=== PATIENT | female | born 1955 | race Caucasian/White ===

== ENCOUNTER 2016-07-18 16:15 | Emergency (ER) | payer OTHER ==
[2016-07-18 16:32] VITALS: TEMP 97.4; BMI 15.5
--- NOTE | 2016-07-18 16:35 | PDOC ---
History of Present Illness - General History Source: Patient Exam Limitations: No Limitations - History of Present Illness Initial Comments: 07/18/16 16:47 The patient is a 61 year old female, with significant past medical history of Crohns disease, volvulus (2006), appendectomy (2006), hypotension, right renal cyst, kidney stones, who presents today complaining of 1 syncopal episode this morning, lightheadedness, and abdominal pain. The patient states that she went into the bedroom to retrieve something when she became light headed and felt numbness and tingling in her fingers and toes bilaterally. Her found her on the bedroom floor.The patient insists that she did not hit her head. The patient had a second episode of lightheadedness as she was getting out of the car this afternoon.The patient reports 1 week of LLQ abdominal pain similar to the pain she felt when she had a volvulus. She describes the pain as a 5/10 in severity. She explains that she has had 5 episodes of diarrhea today, but states that this is not unusual for her considering her hx of Crohns. She believes that she has had recent unintentional weight loss, but does not know how many lbs since she does not use a scale at home. Denies fever, chills, nausea, vomiting. Denies chest pain, SOB, cough. Denies blood or mucous in the stool. Allergies: none reported Medications: Celexa, Omeprazole, Potassium Chloride Social Hx: Social alcohol use. No tobacco use. PCP- <Halina Lama - Last Filed: 07/18/16 18:05> <Eddie Dutton - Last Filed: 07/18/16 18:23> - General Chief Complaint: Syncope/Near Syncope Stated Complaint: FAINTED, HEADACHE , ABDOMINAL PAIN Time Seen by Provider: 07/18/16 16:35 Past History <Halina Lama - Last Filed: 07/18/16 18:05> - Past Medical History GI Disorders: Yes (CROHN'S, SBO X2) - Surgical History GI Surgery: Yes (VOLVULUS) - Psycho/Social/Smoking Cessation Hx Anxiety: Yes Suicidal Ideation: No Smoking History: Never smoked Drug/Substance Use Hx: No Substance Use Type: None <Eddie Dutton - Last Filed: 07/18/16 18:23> - Past Medical History Allergies/Adverse Reactions: Allergies Allergy/AdvReac Type Severity Reaction Status Date / Time No Known Allergies Allergy Verified 07/18/16 16:24 Home Medications: Ambulatory Orders Citalopram Hydrobromide [Celexa -] 10 mg PO DAILY 07/18/16 Omeprazole 20 mg PO DAILY 07/18/16 Potassium Chloride [K-Dur -] 20 meq PO DAILY 07/18/16 Review of Systems - Review of Systems Able to Perform ROS?: Yes Comments:: 07/18/16 16:47 CONSTITUTIONAL: Absent: fever, chills, diaphoresis, generalized weakness, malaise, loss of appetite HEENT: Absent: rhinorrhea, nasal congestion, throat pain, throat swelling, difficulty swallowing, mouth swelling, ear pain, eye pain, visual Changes CARDIOVASCULAR: Absent: chest pain, syncope, palpitations, irregular heart rate, peripheral edema RESPIRATORY: Absent: cough, shortness of breath, dyspnea with exertion, orthopnea, wheezing, stridor, hemoptysis GASTROINTESTINAL: Present: LLQ abdominal pain, diarrhea. Absent: abdominal distension, nausea, vomiting, constipation, melena, hematochezia GENITOURINARY: Absent: dysuria, frequency, urgency, hesitancy, hematuria, flank pain, genital pain MUSCULOSKELETAL: Absent: myalgia, arthralgia, joint swelling SKIN: Absent: rash, itching, pallor NEUROLOGIC: Present: headache, syncope with associated parathesias in the hands and feet bilaterally, lightheadedness. Absent: focal weakness or paresthesias, dizziness, unsteady gait, seizure, mental status changes, bladder or bowel incontinence PSYCHIATRIC: Absent: anxiety, depression, suicidal or homicidal ideation, hallucinations. <Halina Lama - Last Filed: 07/18/16 18:05> *Physical Exam - Vital Signs Last Vital Signs Temp Pulse Resp BP Pulse Ox 97.4 F L 64 15 96/54 100 07/18/16 16:35 07/18/16 16:37 07/18/16 16:35 07/18/16 16:37 07/18/16 16:35 - Physical Exam Comments: 07/18/16 16:48 GENERAL: Extremely thin and cachectic in appearance. Awake and alert. In no acute distress. HEENT: Normocephalic, atraumatic. PERRLA, EOMI. No conjunctival pallor. Sclera are non- icteric. Moist mucous membranes. Oropharynx is clear. NECK: Supple. Full ROM. No JVD. Carotid pulses 2+ and symmetric, without bruits. No thyromegaly. No lymphadenopathy. CARDIOVASCULAR: Regular rate and rhythm. No murmurs, rubs, or gallops. Distal pulses are 2+ and symmetric. PULMONARY: No evidence of respiratory distress. Lungs clear to auscultation bilaterally. No wheezing, rales or rhonchi. ABDOMINAL: Soft. Non-tender. Non-distended. No rebound or guarding. No organomegaly. Normoactive bowel sounds. MUSCULOSKELETAL Normal range of motion at all joints. No bony deformities or tenderness. No CVA tenderness. EXTREMITIES: No cyanosis. No clubbing. No edema. No calf tenderness. SKIN: Warm and dry. Normal capillary refill. No rashes. No jaundice. NEUROLOGICAL: Alert, awake, appropriate. Cranial nerves 2-12 intact. No deficits to light touch and temperature in face, upper extremities and lower extremities. No motor deficits in the in face, upper extremities and lower extremities. Normoreflexic in the upper and lower extremities. Normal speech. Toes are downgoing bilaterally. Gait is normal without ataxia. PSYCHIATRIC: Cooperative. Good eye contact. Appropriate mood and affect. <Halina Lama - Last Filed: 07/18/16 18:05> - Vital Signs Last Vital Signs Temp Pulse Resp BP Pulse Ox 97.4 F L 73 15 96/61 100 07/18/16 16:24 07/18/16 16:24 07/18/16 16:24 07/18/16 16:24 07/18/16 16:24 <Eddie Dutton - Last Filed: 07/18/16 18:23> ED Treatment Course - LABORATORY CBC & Chemistry Diagram: 07/18/16 16:50 07/18/16 16:50 - RADIOLOGY Radiograph Interpretation: 07/18/16 18:05 EXAM: CT HEAD WITHOUT CONTRAST DATE OF SERVICE: 2016-07-18 17:29:16.0 IMAGES: 69 REASON FOR EXAM: Headaches. Syncope. COMPARISON: None. IMPRESSION: No CT evidence of acute infarct, hemorrhage, hydrocephalus or mass effect. Mild age-related involutional changes with ex vacuo dilatation of the ventricular system and expansion of the sulci. THIS DOCUMENT HAS BEEN ELECTRONICALLY SIGNED Becky Brown MD. 07/18/2016 17: 54 NICHOLE Kendall <Halina Lama - Last Filed: 07/18/16 18:05> - LABORATORY CBC & Chemistry Diagram: 07/18/16 16:50 07/18/16 16:50 <Eddie Dutton - Last Filed: 07/18/16 18:23> Medical Decision Making - Medical Decision Making 07/18/16 16:40 Patient was in her bedroom this morning and describes "blacking out". Her was downstairs and came to her assistance. She is insistent that she did not fall and did not hurt her head or neck. She was only "out" for less than a minute. There was no confusion or incontinence subsequently. She felt a little "lightheaded" again later in the day. She states she may have a mild headache and some mild abdominal pain, but this is characteristic of her Crohn' s disease. Her physical exam is unremarkable except that she is extremely thin and somewhat cachectic, but states that this is her normal body habitus. 07/18/16 17:09 Additional history reveals that the patient also experienced numbness and tingling in her fingertips and toes bilaterally at the time. She appears anxious , noting that her mother recently had heart surgery for atrial fibrillation and still wears a monitor at all times. EKG revealed normal sinus rhythm 67/m. Rightward axis. Incomplete RBBB. Slightly prolonged QT. No ST-T wave abnormalities that might suggest acute ischemia. Potassium is 2.8. Patient adamantly refuses intravenous potassium for replenishment. She states that she "has been through this before", intravenous potassium does not "agree with her" and her potassium is always low, in the 3.0 range. By mouth supplementation was started. 07/18/16 17:43 CBC is normal except for mildly elevated platelets. Electrolyte abnormalities as follows: Sodium 130 potassium 2.8 chloride 83 bicarbonate 34 be 35 creatinine 1.9 troponin normal. 07/18/16 17:47 No significant orthostatic changes are noted in blood pressure or pulse. Patient may have chronic kidney disease rather than prerenal azotemia as suggested by the labs. 07/18/16 18:20 CT of the head showed no acute abnormalities Further symptoms. Patient feels fine. Ambulatory without difficulty. No orthostatic symptoms. Most likely etiology was dehydration and/or anxiety and/ or vasovagal. Recommended good nutrition, adequate fluid intake, doubling current potassium dose and salt supplementation. Follow-up with primary physician. Return to ER if symptoms recur 07/18/16 18:23 <Eddie Dutton - Last Filed: 07/18/16 18:23> *DC/Admit/Observation/Transfer - Attestations Scribe Attestion: 07/18/16 16:48 Documentation prepared by EREN Shafer, acting as esthetician and manager medical spa for Eddie Dutton MD. <Halina Lama - Last Filed: 07/18/16 18:05> - Discharge Dispostion Admit: No <Eddie Dutton - Last Filed: 07/18/16 18:23> Diagnosis at time of Disposition: Dehydration - Discharge Dispostion Disposition: HOME Condition at time of disposition: Improved - Referrals Referrals: Alfredo Pearl [Primary Care Provider] - 2 Days - Patient Instructions Printed Discharge Instructions: DI for Syncope in Adults (Fainting), DI for Dehydration -- Adult Additional Instructions: Return to ER if symptoms recur or other serious symptoms develop. Good nutrition, adequate salt and fluid intake, and increased potassium supplementation as directed See your primary physician to recheck your lab work 2-3 days.
[2016-07-18 16:38] VITALS: PULSE 64
[2016-07-18 17:19] LABS: BASOPHIL 2.2 % (0-2.0); EOSINOPHIL 0.6 % (0-4.5); MCHC 33.6 g/dl (32.0-36.0); MEAN CELL VOLUME 98.2 fl (80-96); MEAN PLT VOLUME 7.8 fl (7.5-11.1); NEUTROPHILS 54.6 % (42.8-82.8); PLATELET COUNT 475 K/MM3 (134-434); RDW 12.3 % (11.6-15.6); WHITE BLOOD COUNT 6.5 K/mm3 (4.0-10.0)
[2016-07-18 17:22] LABS: BILIRUBIN,TOTAL 0.4 mg/dl (0.2-1.0); CALCIUM 9.6 mg/dl (8.4-10.2); CPK(DFH) 141 IU/L (26-140); CREATININE 1.9 mg/dl (0.6-1.3); TOT PROT 6.6 g/dl (6.4-8.3)
[2016-07-18] MEDS ORDERED: POTASSIUM CHLORIDE TABS 20 MEQ TABLET.ER (FP) PO ONE ×2 (17:27→17:28)
[2016-07-18] MEDS ORDERED: SODIUM CHLORIDE 1,000 ML IV STA (17:30)
[2016-07-18 17:32] VITALS: BP 96/61
[2016-07-18 17:45] LABS: TROPONIN I (DFP) < 0.03 ng/ml (0.03-0.50)
--- NOTE | 2016-07-19 12:53 | EKG ---
Test Reason : Blood Pressure : / mmHG Vent. Rate : 067 BPM Atrial Rate : 067 BPM P-R Int : 134 ms QRS Dur : 092 ms QT Int : 476 ms P-R-T Axes : 000 100 081 degrees QTc Int : 502 ms NORMAL SINUS RHYTHM RIGHTWARD AXIS INCOMPLETE RIGHT BUNDLE BRANCH BLOCK PROLONGED QT NO PREVIOUS ECGS AVAILABLE Confirmed by MD MARTINEZ MARJORY ([id number]) on 07/19/2016 12:53:21 PM Referred By: EUGENIE Confirmed By:ZAIDA MARTINEZ MD
== END 2016-07-18 18:27 | disposition home or self-care (01) ==
LOC: FER 16:15
PROC: 3E0337Z Introduction of Electrolytic and Water Balance Substance into Peripheral Vein, Percutaneous Approach (ICD-10-PCS; principal; 2016-07-18)
DX: E86.0 Dehydration (principal); K50.90 Crohn's disease, unspecified, without complications; E03.9 Hypothyroidism, unspecified; Z87.442 Personal history of urinary calculi
CPT/HCPCS: 36415; 70450-TC; 80053; 82550; 84484; 85025; 93005; 99285-25